=== PATIENT | female | born 1990 | race Caucasian/White ===

== ENCOUNTER 2018-06-01 13:04 | Emergency (ER) | payer SELFPAY ==
[~2018-06-01] VITALS: Ht 174 cm; Wt 59.7 kg
[2018-06-01] MEDS ORDERED: DEXAMETHASONE 4 MG TABLET PO ONE (13:30)
[2018-06-01] MEDS ORDERED: CEFTRIAXONE 1,000 MG IM ONE (13:30)
[2018-06-01] MEDS ORDERED: CEFTRIAXONE 1,000 MG ONE (13:36)
[2018-06-01] MEDS ORDERED: DEXAMETHASONE 4 MG TABLET ONE (13:36)
[2018-06-01 13:56] VITALS: BP 107/65
== END 2018-06-01 14:47 | disposition home or self-care (01) ==
LOC: ED 14:41
DX: H65.02 Acute serous otitis media, left ear (principal)
CPT/HCPCS: 82962; 96372; 99283; J0696